=== PATIENT | male | born 1965 | race Caucasian/White ===

== ENCOUNTER → 2018-10-12 10:10 | Outpatient (CLI) | payer BC, MEDICARE | END | disposition home or self-care (01) | LOC: D.HCCARDIO 10:10 | PROVIDERS: ATTEND Internal Medicine Cardiovascular Disease | DX: I25.10 Atherosclerotic heart disease of native coronary artery without angina pectoris (principal) ==

== ENCOUNTER 2018-11-02 07:01 | Outpatient (CLI) | payer BC, MEDICARE ==
[~2018-11-02] VITALS: Ht 177.8 cm; Wt 113.6 kg
--- NOTE | ~2018-11-02 | HEMODYNAMI ---
PATIENT:KENNETH DENIS MEDICAL RECORD: [id number] : 69 LOCATION:[facility] ADMISSION DATE: 11/02/18 Generatedon:11/02/201810:39 Patient name: KENNETH DENIS Patient #: [id number] SSN: D OB: 1965 Date of study: 11/02/2018 Page: Of Hemodynamic Procedure Report Patient Data Patient Demographics Procedure consent was obtained First Name: Gender: Male Last Name: CIRA : 1965 Patient #: [id number] Age: 53 year(s) Race: Unknown Additional ID: [id number] Contact details [address]: [address] [place] [address] State: [place] City: [place] Zip code: [address] Admission Admission Data Admission Date: 11/02/2018 Admission Time: 7:01 Arrival Date: 11/02/2018 Arrival Time: 9:00 Admit Source: Other Insurance Payor: Private health insurance Height (in.): 70.08 BSA: 2.3 (m2) Height (cm.): 178 BMI: 35.98 (kg/m2) Weight (lbs.): 251.33 Weight (kg.): 114 Lab Results Lab Result Date: 11/02/2018 Lab Result Time: 0:00 Biochemistry Name Units Result Min Max BUN mg/dl 19 --(----)*- 7 18 Creatinine mg/dl 0.9 --(-*--)-- 0.6 1.3 CBC Name Units Result Min Max Hemoglobin g/dl 14.1 --(*---)-- 13.5 17.5 Procedure Procedure Types Cath Procedure Diagnostic Procedure C [facility] w/Coronaries Procedure Description Procedure Date Procedure Date: 11/02/2018 Procedure Start Time: 10:13 Procedure End Time: 10:37 Procedure Staff Name Function Hang Healy MD Performing Physician Suhail Funk RT Monitor Lori Obregon RT Scrub Lynne Carr RN Nurse Procedure Data Cath Procedure Fluoroscopy Diagnostic fluoroscopy Total fluoroscopy Time: 1.8 time: 1.8 min min Diagnostic fluoroscopy Total fluoroscopy dose: 698 dose: 698 mGy mGy Contrast Material Contrast Material Type Amount (ml) Isovue 300 69 Entry Location Entry Primary Successful Side Size Upsize Upsize Entry Closure Succes sful Closure Location (Fr) 1 (Fr) 2 (Fr) Remarks Device Remarks Femoral Right 5 Fr Exoseal artery Estimated blood loss: 10 ml Diagnostic catheters Device Type Used For End Catheter Placement MULTIPACK JL 4.0 5Fr Procedure catheter MULTIPACK 3DRC 5Fr Procedure catheter MULTIPACK Pigtail 5 Fr Procedure catheter Procedure Medications Medication Administration Route Dosage Oxygen etCO2 Nasal cannula 2 l/min Lidocaine 2% added to field 20 Heparin Flush Bag added to field 2 bags (1000units/500ml NS) 0.9% NaCl I.V. 100 ml/hr Radial Cocktail added to field 1 syringe (Verapamil 2mg/Nitro 400mcg/Heparin 1500units) Versed I.V. 2 mg Fentanyl I.V. 100 mcg Versed I.V. 2 mg Fentanyl I.V. 100 mcg Versed I.V. 2 mg Fentanyl I.V. 100 mcg Hemodynamics Rest BSA: 2.3 (m2) HGB: 14.1 (g/dl) O2 Consumption: Estimated: 284.22 (ml/min) O2 Con sumption indexed: Estimated:123.57 (ml/min/m) Heart Rate: 81 (bpm) Pressure Samples Time Site Value (mmHg) Purpose Heart Use Rate(bpm) 10:29 LV 153/6,25 Snapshot 89 10:29 LV 147/8,26 EDP 89 10:29 AO 132/93(113) Pullback 88 10:29 LV 167/4,24 Pullback 88 Gradients Valve Time Site 1 Site 2 Mean SEP/DFP Peak To Heart Use (mmHg) (sec/min) Peak Rate (mmHg) (bpm) Aortic 10:29 LV AO 24 24 35 88 167/4,24 132/93(113) Calculations Valve P-P Mean Valve Index Valve Source Name Gradient Area Flow (cm2) Aortic 35 24 35 24 Snapshots Pre Cath Intra NCS Post Cath Vital Signs Time Heart Resp SPO2 etCO2 NIBP (mmHg) Rhythm Pain Sedation Rate (ipm) (%) (mmHg) Status Level (bpm) 9:59:12 80 17 97 34.5 164/116(143) NSR 0 (11) 10(A) , No pain 10:04:09 83 13 100 34.5 172/116(142) NSR 0 (11) 10(A) , No pain 10:09:08 85 12 96 31.5 170/100(134) NSR 0 (11) 10(A) , No pain 10:14:07 84 10 99 30.7 Measuring NSR 0 (11) 10(A) , No pain 10:20:18 86 12 99 36.7 142/103(133) NSR 0 (11) 9(A) , No pain 10:24:34 89 18 99 33 137/109(129) NSR 0 (11) 9(A) , No pain 10:28:44 89 13 96 36 143/96(129) NSR 0 (11) 10(A) , No pain 10:32:58 89 12 98 35.2 134/94(129) NSR 0 (11) 10(A) , No pain 10:37:07 89 11 98 32.2 145/103(122) NSR 0 (11) 10(A) , No pain Medications Time Medication Route Dose Verified Delivered Reason Notes Effectiveness by by 10:02:42 Oxygen etCO2 2 l/min Hang Buffie used for Nasal Niraj Carr RN procedure cannula 10:02:49 Lidocaine 2% added 20ml Hang Hang for local to vial Niraj Healy MD anesthetic field 10:02:54 Heparin Flush added 2 bags Hang Hang used for Bag to Niraj Healy MD procedure (1000units/500ml field NS) 10:03:03 0.9% NaCl I.V. 100 Hang Buffie Per ml/hr Niraj Carr RN physician 10:06:10 Radial Cocktail added 1 Hang Hang for not (Verapamil to syringe Niraj Healy MD vasodilation used, 2mg/Nitro field femoral 400mcg/Heparin access 1500units) used. 10:09:39 Versed I.V. 2 mg Hang Buffie for sedation Niraj Carr RN 10:09:45 Fentanyl I.V. 100 mcg Hang Buffie for sedation Niraj Carr RN 10:15:36 Versed I.V. 2 mg Hang Buffie for sedation Niraj Carr RN 10:15:41 Fentanyl I.V. 100 mcg Hang Buffie for sedation Niraj Carr RN 10:23:00 Versed I.V. 2 mg Hang Buffie for sedation Niraj Carr RN 10:23:03 Fentanyl I.V. 100 mcg Hang Buffie for sedation Niraj Carr RN Procedure Log Time Note 9:40:18 Suhail Good RT(R) (CV) sent for patient. Start room use. 9:43:59 Informed consent obtained and on chart 9:44:24 Time tracking: Regular hours (M-F 7:00 - 5:00) 9:44:28 Plan of Care:Hemodynamics will remain stable., Cardiac rhythm will remain stable., Comfort level will be maintained., Respiratory function will remain adequate., Patient/ family verbilizes understanding of procedure., Procedure tolerated without complication., Recovers from procedure without complications.. 9:45:56 Lab Result : Hemoglobin 14.1 g/dl 9:45:56 Lab Result : Creatinine 0.9 mg/dl 9:45:56 Lab Result : BUN 19 mg/dl 9:45:58 Admit Source: Other 9:46:11 Patient Height : 70.08 inches 9:46:16 Patient Weight : 251.33 lbs 9:46:23 Arrival Date: 11/02/2018 9:00:00 AM 9:46:30 Insurance Payor : Private health insurance 9:51:36 Patient received from Pre/Post Procedure Room to CCL 2 Alert and oriented. Tansferred to table in Supine position. 9:51:38 Warm blankets applied, and makeda hugger turned on for patient comfort. 9:51:38 Correct patient and procedure confirmed by team. 9:51:40 ECG and BP/O2 sat monitors applied to patient. 9:57:26 Baseline sample Acquired. 9:57:26 Vital chart was started 9:57:30 Rhythm: sinus rhythm 9:57:31 Full Disclosure recording started 9:57:34 H&P Date Dictated: 11/02/2018 Within 30 days and on chart., H&P Addendum completed by physician on day of procedure. (MUST COMPLETE FOR ALL OUTPATIENTS). 9:57:36 Pre-procedure instructions explained to patient. 9:57:36 Pre-op teaching completed and patient verbalized understanding. 9:57:37 Family in patients room. 9:57:40 Patient NPO since Midnight. 9:57:42 Is the patient allergic to Iodine/contrast media? No. 9:57:43 Was the patient premedicated? No 9:57:44 Is patient on blood thinner?No 9:57:45 Patient diabetic? No. 9:57:48 Previous problem with sedation/anesthesia? No ? 9:57:50 Snore? Yes 9:57:51 Sleep apnea? Yes 9:57:52 Deviated septum? No 9:57:58 Opens mouth fully? Yes 9:57:58 Sticks out tongue? Yes 9:58:00 Airway obstruction? No ? 9:58:03 Dentures? No ? 9:58:11 Patient pain scale 0/10 ?. 9:58:18 IV patent on arrival in left forearm with 0.9% NaCl at [facility]. 9:58:20 Lab results completed and on chart. 9:58:24 Right Radial & Right Groin area was prepped with chlora-prep and draped in sterile fashion 9:58:26 Alarms reviewed by R. N. 9:58:26 Sharps counted by scrub and verified by R.N. 10:02:42 Oxygen 2 l/min etCO2 Nasal cannula was administered by Lynne Carr RN; used for procedure; 10:02:49 Lidocaine 2% 20ml vial added to field was administered by Hang Healy MD; for local anesthetic; 10:02:54 Heparin Flush Bag (1000units/500ml NS) 2 bags added to field was administered by Hang Healy MD; used for procedure; 10:03:03 0.9% NaCl 100 ml/hr I.V. was administered by Lynne Carr RN; Per physician; 10:06:10 Radial Cocktail (Verapamil 2mg/Nitro 400mcg/Heparin 1500units) 1 syringe added to field was administered by Hang Healy MD; for vasodilation; not used, femoral access used. 10:08:08 Physician arrived 10:08:08 --------ALL STOP TIME OUT------ 10:08:09 Final Timeout: patient, procedure, and site verified with staff and physician. All members of the team are in agreement. 10:08:12 Right Radial & Right Groin site verified by team. 10:08:17 Fire Safety Assessment: A--An alcohol-based skin anteseptic being used preoperatively., C--Open oxygen or nitrous oxide is being used., D--An ESU, laser, or fiber-optic light is being used. 10:08:22 Physical assessment completed. ASA score P 2 - A patient with mild systemic disease as per Hang Healy MD. 10:08:34 1) 90+ Normal kidney functon but urine findings or structural abnormalities or genetic trait point to kidney disease. 10:09:02 Maximum allowable contrast does (3.7 X eGFR X 0.75)249 ml. 10:09:07 Sedation plan: IV Moderate Sedation Medication:Versed, Fentanyl 10:09:39 Versed 2 mg I.V. was administered by Lynne Carr RN; for sedation; 10:09:45 Fentanyl 100 mcg I.V. was administered by Lynne Carr RN; for sedation; 10:12:47 Use device set Radial Dx or PCI 10:12:49 ACIST Syringe (77424) opened to sterile field. 10:12:50 Medline Cath Pack ([id number]) opened to sterile field. 10:12:51 Bag Decanter (2002S) opened to sterile field. 10:12:51 ACIST Hand Control (22138) opened to sterile field. 10:12:52 ACIST Manifold (40327) opened to sterile field. 10:12:53 Tegaderm 4 x 4 (1626W) opened to sterile field. 10:12:53 MBrace Wrist Support ([id number]) opened to sterile field. 10:12:54 NEEDLE Cook 21G 4cm Radial (V97066) opened to sterile field. 10:12:56 EMERALD Guide Wire (286-424) opened to sterile field. 10:13:12 SHEATH 6FR RAIN ([id number]) opened to sterile field. 10:13:21 Procedure started. 10:13:32 Local anesthetic to right radial artery with Lidocaine 2% by Hang Healy MD.INITIAL ACCESS ONLY 10:15:36 Versed 2 mg I.V. was administered by Lynne Carr RN; for sedation; 10:15:41 Fentanyl 100 mcg I.V. was administered by Lynne Carr RN; for sedation; 10:20:36 SHEATH 5FR Canal [place] ([id number]) opened to sterile field. 10:21:06 UNABLE TO OBTAIN RADIAL ACCESS 10:21:12 Local anesthetic to right femoral artery with Lidocaine 2% by Hang Healy MD.ADDITIONAL ACCESS 10:23:00 Versed 2 mg I.V. was administered by Lynne Carr RN; for sedation; 10:23:00 A 5 Fr sheath was inserted into the Right Femoral artery 10:23:03 Fentanyl 100 mcg I.V. was administered by Lynne Carr RN; for sedation; 10:23:35 Use device set Multipack Set 10:23:38 DIAGNOSTIC Multipack 5Fr catheter set ([id number]) opened to sterile field. 10:24:31 A MULTIPACK JL 4.0 5Fr catheter was advanced over the wire and used for Procedure. 10:24:37 LCA angiography performed. 10::38 Catheter removed. 10:27:04 A MULTIPACK 3DRC 5Fr catheter was advanced over the wire and used for Procedure. 10:27:09 RCA angiography performed. 10:28:21 A MULTIPACK Pigtail 5 Fr catheter was advanced over the wire and used for Procedure. 10:29:36 LV hemodynamics recorded. 10:29:38 LV gram done using DEE 10:29:43 EF : 60 % 10:30:08 Catheter removed. 10:30:24 EXOSEAL 5Fr (EX500) opened to sterile field. 10:32:17 Sheath removed intact; hemostasis achieved with Exoseal to the Right Femoral artery. 10:32:19 Procedure ended.(Physican Out) 10:32:32 Fluoroscopy time 01.80 minutes. 10:32:42 Fluoroscopy dose: 698 mGy 10:32:42 Flurop Dose total: 698 10:32:47 Contrast amount:Isovue 300 69ml. 10:34:09 Insertion/operative site no bleeding no hematoma. 10:34:13 Post-op/insertion site Right Femoral artery dressed using a 4 x 4 and Tegaderm. 10:34:18 Post right femoral artery:stable 10:34:26 Post-procedure physical assessment completed. ASA score P 2 - A patient with mild systemic disease as per Hang Healy MD. 10:34:38 Post procedure: right dorsailis pedis pulse 2+ Normal; easily identifiable; not easily obliterated. 10:34:42 Post procedure rhythm: sinus rhythm 10:34:45 Estimated blood loss: 10 ml 10:34:53 Patient needs reinforcement of post procedure teaching. 10:35:37 Procedure and supply charges have been captured, reviewed, submitted and are correct. 10:36:36 Vital chart was stopped 10:36:41 See physician's report for complete and final results. 10:36:43 Report given to Pre/Post Procedure Room. 10:36:48 Patient transfered to Pre/Post Procedure Room with Stretcher. 10:37:57 Procedure ended. 10:37:57 Full Disclosure recording stopped 10:38:02 End room use (Document Last) Device Usage Item Name Manufacture Quantity Catalog Hospital Part Current Minima l Lot# / Number Charge Number Stock Stock Serial# Code ACIST Acist 1 56304 685921 [id number] 828558 20 Syringe Medical (72204) Systems Inc Medline Medline 1 [id number] 951716 61988 420111 5 Cath Pack ([id number]) Bag Microtek 1 2001S 807862 00299 213849 5 Decanter Medical Inc. () ACIST Hand Acist 1 12722 751876 321598 282143 5 Control Medical (51767) Systems Inc ACIST Acist 1 39811 524567 083493 990073 5 Manifold Medical (29653) Systems Inc Tegaderm 4 3M 1 1626W 743664 760486 624506 5 x 4 (1626W) MBrace Advanced 1 140-0250-00 904617 33026 230552 5 Wrist Vascular Support Dynamics ([id number]) NEEDLE CMGE Medical 1 [id number] 168595 742373 630657 5 21G 4cm Radial (S67122) EMERALD Cardinal 1 502-455 023065 639287 469279 5 Guide Wire Health (502-455) SHEATH 6FR Cardinal 1 [id number] 304291 7330402 570368 5 [facility] Care [facility] (6971762) SHEATH 5FR Terumo 1 UAO962 490069 340325 457460 5 Canal [place] (SWH669) DIAGNOSTIC Cardinal 1 ZW1856 764397 12294 530426 30 Multipack Health 5Fr catheter set ([id number]) MULTIPACK Cardinal 1 443432 5 JL 4.0 5Fr Health catheter MULTIPACK Cardinal 1 599565 5 3DRC 5Fr Health catheter MULTIPACK Cardinal 1 802502 5 Pigtail 5 Health Fr catheter EXOSEAL 5Fr Cardinal 1 EX500 276049 429967 223171 10 (EX500) Health Signature Audit [place]anson Stage Time Signature Unsigned Intra-Procedure 11/02/2018 Suhail Funk 10:39:27 AM RT(R) (CV) Signatures Monitor : Suhail Funk RT Signature : Date : Time : [address] [address]
[2018-11-02] MEDS ORDERED: VITAMIN D250000 UNIT PO (07:29)
[2018-11-02] MEDS ORDERED: ZYLOPRIM300 MG PO (07:29)
[2018-11-02] MEDS ORDERED: COREG12.5 MG PO (07:30)
[2018-11-02] MEDS ORDERED: PROZAC20 MG PO (07:30)
[2018-11-02] MEDS ORDERED: BENICAR20 MG PO (07:31)
[2018-11-02] MEDS ORDERED: CRESTOR5 MG PO (07:31)
[2018-11-02] MEDS ORDERED: XYREM (07:33)
[2018-11-02] MEDS ORDERED: CO Q-1030 MG PO (07:34)
[2018-11-02 07:45] VITALS: BP 154/101; Ht 177.8 cm; Wt 113.6 kg
[2018-11-02 07:58] LABS: BASOPHILS 0.3 % (0-2); EOSINOPHILS 3.8 % (0-7); HEMATOCRIT 41.5 % (42.0-54.0); HEMOGLOBIN 14.1 g/dL (13.5-17.5); IMMATURE GRANULOCYTES 0.2 % (0-5); LYMPHOCYTES 21.8 % (15-50); MCH 30.5 pg (26.0-34.0); MCV 89.8 fL (80.0-100.0); MEAN PLATELET VOLUME 10.6 fL (7.4-10.4); MONOCYTES 9.3 % (2-11); NEUTROPHILS 64.6 % (40-80); PLATELET COUNT 274 10x3/uL (130-400); RBC 4.62 10x6/uL (4.20-6.10); RDW 13.6 % (11.5-14.5); WBC 6.4 10x3/uL (4.8-10.8)
[2018-11-02 08:08] LABS: CALC OSMOLALITY 286 mosm/kg (275-300); CALCIUM 8.9 mg/dL (8.5-10.1); CARBON DIOXIDE 28.1 mmol/L (21.0-32.0); CHLORIDE - SERUM 104 mmol/L (98-107); CREATININE - SERUM 0.9 mg/dL (0.6-1.3); GLUCOSE 107 mg/dL (74-106); POTASSIUM - SERUM 3.9 mmol/L (3.5-5.1); SODIUM 143 mmol/L (136-145); UREA NITROGEN 19 mg/dL (7-18); eGFR NON AFRICAN AMERICAN > 90 mL/min (90-120)
--- NOTE | 2018-11-02 10:45 | NUR ---
PT RECEIVED BACK TO ROOM FROM [facility] VIA STRETCHER FOR RECOVERY. PT DROWSY, BUT VERBALLY AROUSABLE. 5FR EXOLELE TO R GROIN, DRESSING CDI, NO BLEEDING OR HEMATOMA NOTED. R LEG AND FOOT PINK AND WARM, PEDAL PULSES PALPABLE. IV PATENT INFUSING VIA ORDERS. HR NSR RATE 86, BP 148/94, O2 SAT 96 ON 2L/NC. PT INSTRUCTED TO KEEP HEAD ON PILLOW AND LEG STRAIGHT, HE VERBALIZED UNDERSTANDING. PT DENIES PAIN OR DISCOMFORT. CALL LIGHT IN REACH
--- NOTE | 2018-11-02 11:15 | NUR ---
PT STILL SLEEPING COMFORTABLY. GROIN SOFT, DRESSING CDI NO BLEEDING OR SWELLING NOTED. VSS. CALL LIGHT IN REACH, AT BEDSIDE
--- NOTE | 2018-11-02 12:05 | NUR ---
GROIN REMAINS SOFT, DRESSING CDI NO BLEEDING OR SWELLING NOTED. HOB ELEVATES SLIGHTLY, SANDWICH AND DRINK SERVED. PT DENIES DISCOMFORT OR NEEDS AT THIS TIME. CALL LIGHT IN REACH, FAMILY AT BEDSIDE. VSS
--- NOTE | 2018-11-02 12:30 | NUR ---
PT TOLERATED LUNCH W/O NAUSEA. DENIES PAIN OR DISCOMFORT. GROIN REMAINS SOFT, NO BLEEDING OR SWELLING NOTED. VSS. AT BEDSIDE
--- NOTE | 2018-11-02 12:45 | NUR ---
IV REMOVED W CATH INTACT, MONITORS REMOVED. DISCHARGE INSTRUCTIONS REVEIWED W PT AND , BOTH VERBALIZED UNDERSTANDING. PT UP TO DRESS FOR DISCHARGE
--- NOTE | 2018-11-02 13:01 | NUR ---
PT DISCHARGED VIA WC TO PRIVATE VEHICLE WITH ALL BELONGINGS.
== END 2018-11-02 13:00 | disposition home or self-care (01) ==
LOC: D.CATH 07:01
PROVIDERS: ATTEND Internal Medicine Cardiovascular Disease
DX: I25.119 Atherosclerotic heart disease of native coronary artery with unspecified angina pectoris (principal); Z95.5 Presence of coronary angioplasty implant and graft; M19.90 Unspecified osteoarthritis, unspecified site; F32.9 Major depressive disorder, single episode, unspecified; Z79.899 Other long term (current) drug therapy; Z01.812 Encounter for preprocedural laboratory examination